=== PATIENT | male | born 2000 | race African-American/Black ===

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

== ENCOUNTER 2021-10-10 12:44 | Emergency (ER) | payer OTHER, MEDICAID ==
[~2021-10-10] VITALS: Ht 193 cm; Wt 104.3 kg
[2021-10-10 13:29] VITALS: BP 146/70
== END 2021-10-10 14:25 | disposition home or self-care (01) ==
LOC: M.ERS 12:44
DX: J06.9 Acute upper respiratory infection, unspecified (principal)